=== PATIENT | female | born 1950 | race Caucasian/White ===

== ENCOUNTER 2022-06-11 00:20 | Emergency (ER) | payer SELFPAY ==
[2022-06-11 01:43] LABS: HEMOGLOBIN 12.5 gm/dl (12.3-15.3); RED BLOOD COUNT 4.39 M/UL (4.00-5.10); WHITE BLOOD COUNT 6.7 K/UL (4.5-11.0)
[2022-06-11 01:55] LABS: BUN/CREATININE RATIO 20 (0-10)
[2022-06-11 05:03] LABS: ADENOVIRUS F 40/41 Not Detected (Negative); ASTROVIRUS Not Detected (Negative); CAMPYLOBACTER Not Detected (Negative); CRYPTOSPORIDIUM Not Detected (Negative); E.COLI 0157 Not Detected (Negative); ENTAMOEBA HISTOLYTICA Not Detected (Negative); ENTEROAGGREGATIVE E.COLI (EAEC Not Detected (Negative); ENTEROPATHOGENIC E.COLI (EPEC) Not Detected (Negative); ENTEROTOXIGENIC E.COLI (ETEC) Not Detected (Negative); GIARDIA LAMBLIA Not Detected (Negative); NOROVIRUS GI/GII Not Detected (Negative); PLESIOMONAS SHIGELLOIDES Not Detected (Negative); ROTOVIRUS A Not Detected (Negative); SALMONELLA Not Detected (Negative); SAPOVIRUS Not Detected (Negative); SHIG/ENTEROINVAS.ECOLI (EIEC) Not Detected (Negative); VIBRIO Not Detected (Negative); VIBRIO CHOLERAE Not Detected (Negative); YERSINIA ENTEROCOLITICA Not Detected (Negative)
[2022-06-11 07:51] LABS: CLOSTRIDIUM DIFFICILE TOX A/B Not Detected (Negative); SHIGA-LIK TOX.PRO.E.COLI (STEC DETECTED (Negative)
[2022-06-12] MEDS ORDERED: HYDROCODON-ACE1 EAC4 PO (01:48)
== END 2022-06-11 06:10 | disposition left against medical advice (07) ==
LOC: ER1 00:20
PROVIDERS: Family Medicine; Physician Assistant
DX: R10.84 Generalized abdominal pain (principal); R19.7 Diarrhea, unspecified; R11.0 Nausea; R51.9 Headache, unspecified; M54.6 Pain in thoracic spine; Z20.822 Contact with and (suspected) exposure to COVID-19; Z91.041 Radiographic dye allergy status
CPT/HCPCS: 0240U; 70450; 80053; 81001; 83690; 85025; 87045; 87077; 87086; 87186; 87507; 93005; 96361; 96374; 99283; J2550

== ENCOUNTER 2022-06-11 20:51 | Emergency (ER) | payer SELFPAY ==
[2022-06-11 22:15] LABS: HEMOGLOBIN 12.4 gm/dl (12.3-15.3); RED BLOOD COUNT 4.4 M/UL (4.00-5.10); WHITE BLOOD COUNT 6.6 K/UL (4.5-11.0)
[2022-06-12] MEDS ORDERED: HYDROCODON-ACE1 EAC4 PO (01:48)
== END 2022-06-12 02:10 | disposition home or self-care (01) ==
LOC: ER1 20:51
PROVIDERS: Family Medicine
DX: R10.9 Unspecified abdominal pain (principal); R19.7 Diarrhea, unspecified; B96.23 Unspecified Shiga toxin-producing Escherichia coli [E. coli] [STEC] as the cause of diseases classified elsewhere; R51.9 Headache, unspecified; Z91.041 Radiographic dye allergy status
CPT/HCPCS: 80053; 82550; 82553; 83690; 84484; 85025; 96361; 96374; 96375; 99284; J0780; J1200; J2270; J2405